=== PATIENT | female | born 1955 | race Caucasian/White ===

== ENCOUNTER 2016-08-02 07:31 | Inpatient (IN) | payer OTHER ==
[~2016-08-02] VITALS: Ht 160 cm; Wt 90.1 kg
[~2016-08-02 07:31] MED LIST: BETIMOL 0.100 DROP/5 BOTH EYES; COLACE100 MG PO; HYDROCHLOROTHIA25 MG PO; IRON325 M1 PO; LEVOXYL88 MCG PO; LIPITOR40 MG PO; METFORMIN HCL500 M4 PO; ULTRAM50 MG PO; ZYRTEC10 M2 PO
[2016-08-02 08:38] VITALS: BP 121/78
[2016-08-02 08:38] LABS: POINT-OF-CARE METER ID UU14174212
[2016-08-02 14:00] VITALS: BP 135/75
[2016-08-02 15:32] VITALS: BP 119/58
[2016-08-02 16:18] LABS: POINT-OF-CARE METER ID UU13113712
[2016-08-02 20:02] VITALS: BP 136/65
[2016-08-02 21:51] LABS: POINT-OF-CARE METER ID UU13113712
[2016-08-02 23:55] VITALS: BP 118/59
[2016-08-03 04:12] VITALS: BP 132/61
[2016-08-03 07:30] LABS: HEMATOCRIT 36.3 % (36.0-46.0)
[2016-08-03 08:00] VITALS: BP 134/62
[2016-08-03 11:37] VITALS: BP 129/72
[2016-08-03 11:39] LABS: POINT-OF-CARE METER ID UU13113712
[2016-08-03 15:40] VITALS: BP 130/64
[2016-08-03 16:23] LABS: POINT-OF-CARE METER ID UU13113712
[2016-08-03 19:59] VITALS: BP 122/63
[2016-08-03 22:06] LABS: POINT-OF-CARE METER ID UU13113712
[2016-08-04 00:21] VITALS: BP 134/63
[2016-08-04 04:25] VITALS: BP 140/63
[2016-08-04 05:31] LABS: HEMATOCRIT 38.2 % (36.0-46.0); MCV 89.5 FL (83-99)
[2016-08-04 08:00] VITALS: BP 110/61
[2016-08-04 08:07] LABS: POINT-OF-CARE METER ID UU13113712
[2016-08-04] MEDS ORDERED: HYDROCODON-ACE1 EAC9 PO (09:41)
[2016-08-04] MEDS ORDERED: XARELTO10 MG PO (09:41)
[2016-08-04] MEDS ORDERED: HYDROCODON-ACE1 EAC7 PO (09:46)
[2016-08-04 11:13] LABS: POINT-OF-CARE METER ID UU13113712
[2016-08-04 12:03] VITALS: BP 136/75
[2016-08-04 14:40] VITALS: BP 125/63
== END 2016-08-04 14:45 | DRG 470 ==
LOC: 2SOUTH 07:31 → 3WEST 13:50
PROVIDERS: Orthopaedic Surgery
PROC: 0SRC0J9 Replacement of Right Knee Joint with Synthetic Substitute, Cemented, Open Approach (ICD-10-PCS; principal; 2016-08-02)
DX: M17.0 Bilateral primary osteoarthritis of knee (principal); E11.9 Type 2 diabetes mellitus without complications; I10 Essential (primary) hypertension; E78.5 Hyperlipidemia, unspecified; B00.9 Herpesviral infection, unspecified
CPT/HCPCS: 82948; 85014; 85018; C1713; J0131; J0690; J1170; J1815; J1885; J2250; J2405; J2795; J7030; J7050; L1820